=== PATIENT | male | born 1965 | race Caucasian/White ===

== ENCOUNTER 2017-05-04 09:43 | Emergency (ER) | payer OTHER ==
[~2017-05-04] VITALS: Ht 190.5 cm; Wt 86.2 kg
--- NOTE | 2017-05-04 09:58 | NUR ---
PT REPORTS PLAYING POKER FOR SEVERAL HOURS WITHOUT GETTING UP, TODAY HE HAS PAIN AND BURNING DOWN THE LEFT LEG RADIATING INTO HIS GROWN. NO OTHER COMPLAINTS. Addendum: 05/04/17 at 1126 by SHANEL Patient discharged to home in stable conditon. Written and verbal after care instructions given. Patient verbalizes understanding of instructions. TAUGHT CRUTCH WALKING AND PROVIDED A FITTED PAIR OF CRUTCHES TO REST THE HIP.
[2017-05-04 11:25] VITALS: BP 110/79
== END 2017-05-04 11:28 | disposition home or self-care (01) ==
LOC: ER 09:44
DX: M77.9 Enthesopathy, unspecified (principal)
CPT/HCPCS: 73551; 99284; A4663